=== PATIENT | male | born 1945 | race Caucasian/White ===

== ENCOUNTER 2017-10-20 22:07 | Emergency (ER) | payer MEDICARE, BC ==
[2017-10-20] MEDS ORDERED: Morphine 4 MG/ML Syringe IVPUSH PRN (22:19)
[2017-10-20] MEDS ORDERED: Aspirin 81 MG Tab.Chew PO ONE (22:19)
[2017-10-20] MEDS ORDERED: Nitroglycerin 0.4 MG Tab.SL SL PRN (22:19)
[2017-10-20] MEDS ORDERED: Sodium Chloride 0.9% 10 ML Syringe FLUSH PRN (22:19)
--- NOTE | 2017-10-20 22:23 | EDM.PDOC ---
ED HPI GENERAL MEDICAL PROBLEM - General Stated Complaint: CHEST PAINS Time Seen by Provider: 10/20/17 22:18 Source of Information: Reports: Patient, RN Notes Reviewed History Limitations: Reports: No Limitations - History of Present Illness INITIAL COMMENTS - FREE TEXT/NARRATIVE: 71-year-old gentleman presents to the emergency department today with complaint of chest pain, he has a known history of coronary artery disease was stented approximately 4 years ago, states had sudden onset of pain which is constant approximately 3 hours prior he does feel short of breath no nausea vomiting pain does go up the left side of his neck. Chest Pain Score (Numeric/FACES): 3 Left Neck Pain Score (Numeric/FACES): 10 - Related Data Allergies Allergy/AdvReac Type Severity Reaction Status Date / Time No Known Allergies Allergy Verified 10/20/17 22:33 Home Meds: Home Meds Gabapentin [Neurontin] 300 mg PO DAILY 10/20/17 [History] Gabapentin [Neurontin] 500 mg PO BEDTIME 10/20/17 [History] Hydrocodone/Acetaminophen [Hydrocodon-Acetaminophen 5-325] 1 tab PO DAILY PRN [History] Insulin NPH/Insulin Reg,Human [Novolin 70-30] 20 units SQ BEDTIME 10/20/17 [ History] Insulin NPH/Insulin Reg,Human [Novolin 70-30] 36 units SQ DAILY 10/20/17 [ History] Levothyroxine [Synthroid] 88 mcg PO DAILY 10/20/17 [History] Levothyroxine [Synthroid] 100 mcg PO DAILY 10/20/17 [History] Lisinopril 10 mg PO DAILY 10/20/17 [History] Methotrexate 25 mg PO ASDIRECTED 10/20/17 [History] predniSONE [Prednisone] 5 mg PO DAILY 10/20/17 [History] Past Medical History Cardiovascular History: Reports: CAD, High Cholesterol, Hypertension, Stents Social & Family History - Tobacco Use Smoking Status *Q: Former Smoker ED ROS GENERAL - Review of Systems Review Of Systems: See Below Constitutional: Denies: Diaphoresis HEENT: Reports: No Symptoms Respiratory: Reports: Shortness of Breath Cardiovascular: Reports: Chest Pain GI/Abdominal: Reports: No Symptoms : Reports: No Symptoms Musculoskeletal: Reports: No Symptoms Skin: Reports: Rash Neurological: Reports: No Symptoms ED EXAM, GENERAL - Physical Exam Exam: See Below Exam Limited By: No Limitations General Appearance: Alert, Moderate Distress Eye Exam: Bilateral Eye: Normal Inspection Ears: Normal External Exam, Normal Canal, Hearing Grossly Normal, Normal TMs Nose: Normal Inspection, Normal Mucosa, No Blood Throat/Mouth: Normal Inspection, Normal Lips, Normal Teeth, Normal Gums, Normal Oropharynx, Normal Voice, No Airway Compromise Head: Atraumatic, Normocephalic Neck: Normal Inspection, Supple, Non-Tender, Full Range of Motion Respiratory/Chest: No Respiratory Distress, Lungs Clear, Normal Breath Sounds, No Accessory Muscle Use, Other (Rash on the chest left side consistent with herpes zoster) Cardiovascular: Regular Rate, Rhythm, No Murmur GI/Abdominal: Soft, Non-Tender Extremities: No Pedal Edema, Other (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 DIRECTED Care 10/20/17 22:20 Active Chest 1V Frontal [CR] Stat Exams 10/20/17 22:20 Taken Heparin Sodium/D5W [Heparin 25,000 Units in D5W 500 ML] Med 10/20/17 23:15 Active 25,000 units in 500 ml IV TITRATE Morphine Med 10/20/17 22:19 Active 4 mg IVPUSH Q10M PRN Nitroglycerin [Nitrostat] Med 10/20/17 22:19 Active 0.4 mg SL Q5M PRN Nitroglycerin/D5W [Nitroglycerin 25 MG/D5W 250 ML] Med 10/20/17 23:30 Active 25 mg in 250 ml IV TITRATE Sodium Chloride 0.9% [Saline Flush] Med 10/20/17 22:19 Active 10 ml FLUSH ASDIRECTED PRN Peripheral IV Insertion Adult [OM.PC] Stat Oth 08/24/18 22:19 Ordered Saline Lock Insert [OM.PC] Stat Oth 10/20/17 22:19 Ordered EKG 12 Lead [EK] Stat Ther 10/20/17 22:19 Ordered Medication Orders Heparin Sodium/Dextrose (Heparin 25,000 Units In D5w 500 Ml) 25,000 units in 500 mls @ 20.684 mls/hr IV TITRATE ELENO; Protocol Last Admin: 10/20/17 23:25 Dose: 12 units/kg/hr, 20.684 mls/hr Nitroglycerin/Dextrose (Nitroglycerin 25 Mg/D5w 250 Ml) 25 mg in 250 mls @ 6 mls/hr IV TITRATE ELENO; Protocol Morphine Sulfate (Morphine) 4 mg IVPUSH Q10M PRN PRN Reason: Chest Pain Stop: 10/21/17 22:19 Last Admin: 10/20/17 22:49 Dose: 4 mg Nitroglycerin (Nitrostat) 0.4 mg SL Q5M PRN PRN Reason: Chest Pain Stop: 10/21/17 22:19 Last Admin: 10/20/17 22:29 Dose: 0.4 mg Sodium Chloride (Saline Flush) 10 ml FLUSH ASDIRECTED PRN PRN Reason: Keep Vein Open Last Admin: 10/20/17 22:29 Dose: 10 ml Labs: Laboratory Tests 10/20/17 10/20/17 10/20/17 Range/Units 22:30 22:30 22:30 WBC 8.9 (4.5-11.0) K/uL RBC 4.47 (4.30-5.90) M/uL Hgb 14.3 (12.0-15.0) g/dL Hct 41.0 (40.0-54.0) % MCV 92 (80-98) fL MCH 32 H (27-31) pg MCHC 35 (32-36) % Plt Count 159 (150-400) K/uL Neut % (Auto) 70 H (36-66) % Lymph % (Auto) 19 L (24-44) % [place] % (Auto) 8 H (2-6) % Eos % (Auto) 3 (2-4) % Baso % (Auto) 0 (0-1) % PT 9.9 (9.5-12.0) sec INR 0.89 (0.80-1.20) Sodium 140 (140-148) mmol/L Potassium 4.0 (3.6-5.2) mmol/L Chloride 104 (100-108) mmol/L Carbon Dioxide 28 (21-32) mmol/L Anion Gap 7.8 (5.0-14.0) mmol/L BUN 22 H (7-18) mg/dL Creatinine 1.2 (0.8-1.3) mg/dL Est Cr Clr Drug Dosing 66.83 mL/min Estimated GFR (MDRD) 59 L (>60) Glucose 221 H (74-106) mg/dL Calcium 8.8 (8.5-10.1) mg/dL Total Bilirubin 0.6 (0.2-1.0) mg/dL AST 31 (15-37) U/L ALT 31 (12-78) U/L Alkaline Phosphatase 125 H (46-116) U/L CK-MB (CK-2) 4.4 H (0-3.6) mg/mL Troponin I 1.862 H* (0.000-0.056) ng/mL Total Protein 6.9 (6.4-8.2) g/dL Albumin 3.2 L (3.4-5.0) g/dL Globulin 3.7 H (2.3-3.5) g/dL Albumin/Globulin Ratio 0.9 L (1.2-2.2) Meds: Medications Generic Name Dose Route Start Last Admin Trade Name Freq PRN Reason Stop Dose Admin Heparin Sodium/Dextrose 25,000 units in 500 mls @ 20.684 mls/hr 10/20/17 23: 15 10/20/17 23:25 Heparin 25,000 Units In D5w 500 Ml IV 12 units/kg/hr TITRATE ELENO 20.684 mls/hr Administration Protocol 12 UNITS/KG/HR Nitroglycerin/Dextrose 25 mg in 250 mls @ 6 mls/hr 10/20/17 23:30 Nitroglycerin 25 Mg/D5w 250 Ml IV TITRATE ELENO Protocol 10 MCG/MIN Morphine Sulfate 4 mg 10/20/17 22:19 10/20/17 22:49 Morphine IVPUSH 10/21/17 22:19 4 mg Q10M PRN Administration Chest Pain Nitroglycerin 0.4 mg 10/20/17 22:19 10/20/17 22:29 Nitrostat SL 10/21/17 22:19 0.4 mg Q5M PRN Administration Chest Pain Sodium Chloride 10 ml 10/20/17 22:19 10/20/17 22:29 Saline Flush FLUSH 10 ml ASDIRECTED PRN Administration Keep Vein Open Discontinued Medications Generic Name Dose Route Start Last Admin Trade Name Freq PRN Reason Stop Dose Admin Aspirin 324 mg 10/20/17 22:19 10/20/17 22:28 Aspirin PO 10/20/17 22:20 324 mg ONETIME ONE Administration Clopidogrel Bisulfate 300 mg 10/20/17 23:10 10/20/17 23:18 Plavix PO 10/20/17 23:11 300 mg ONETIME ONE Administration Heparin Sodium (Porcine) 0 units 10/20/17 23:10 10/20/17 23:21 Heparin Sodium IVPUSH 10/20/17 23:11 4,000 units .BOLUS ONE Administration Hydromorphone HCl 1 mg 10/20/17 23:05 10/20/17 23:10 Dilaudid IVPUSH 10/20/17 23:06 1 mg ONETIME ONE Administration Departure - Departure Time of Disposition: 23:29 Disposition: DC/Tfer to Acute Hospital 02 Reason for Transfer *Q: Primary PCI Indicated Condition: Fair Clinical Impression: Non-STEMI (non-ST elevated myocardial infarction) Referrals: PCP,None [Primary Care Provider] - - My Orders Last 24 Hours: My Active Orders 10/20/17 22:19 Cardiac Monitoring [RC] .As Directed Morphine 4 mg IVPUSH Q10M PRN Nitroglycerin [Nitrostat] 0.4 mg SL Q5M PRN Sodium Chloride 0.9% [Saline Flush] 10 ml FLUSH ASDIRECTED PRN Peripheral IV Insertion Adult [OM.PC] Stat Saline Lock Insert [OM.PC] Stat EKG 12 Lead [EK] Stat 10/20/17 22:20 EKG Documentation Completion [RC] ASDIRECTED Peripheral IV Care [RC] . DIRECTED Chest 1V Frontal [CR] Stat 10/20/17 23:15 Heparin Sodium/D5W [Heparin 25,000 Units in D5W 500 ML] 25,000 units in 500 ml IV TITRATE 10/20/17 23:30 Nitroglycerin/D5W [Nitroglycerin 25 MG/D5W 250 ML] 25 mg in 250 ml IV TITRATE - Assessment/Plan Last 24 Hours: My Active Orders 10/20/17 22:19 Cardiac Monitoring [RC] .As Directed Morphine 4 mg IVPUSH Q10M PRN Nitroglycerin [Nitrostat] 0.4 mg SL Q5M PRN Sodium Chloride 0.9% [Saline Flush] 10 ml FLUSH ASDIRECTED PRN Peripheral IV Insertion Adult [OM.PC] Stat Saline Lock Insert [OM.PC] Stat EKG 12 Lead [EK] Stat 10/20/17 22:20 EKG Documentation Completion [RC] ASDIRECTED Peripheral IV Care [RC] . DIRECTED Chest 1V Frontal [CR] Stat 10/20/17 23:15 Heparin Sodium/D5W [Heparin 25,000 Units in D5W 500 ML] 25,000 units in 500 ml IV TITRATE 10/20/17 23:30 Nitroglycerin/D5W [Nitroglycerin 25 MG/D5W 250 ML] 25 mg in 250 ml IV TITRATE Plan: Assessment Acuity = acute Site and laterality = non-ST elevation myocardial infarction complicated patient with known history coronary artery disease, diabetes mellitus type 2 insulin-dependent Etiology = probable underlying coronary artery disease Manifestations = pain Location of injury = Home Lab values = CBC unremarkable INR 0.89 CK-MB mildly elevated 4.4 troponin elevated at 1.862 albumin low at 2.2 consistent hypoalbuminemia EKG demonstrates sinus rhythm left axis deviation with Q waves in [address] elevations or depressions, , chest x-ray I did review films myself I cannot appreciate any acute process, the official read from radiology is pending Plan Called discussed case with hospitalist lead injection mold technician Dr. Ward at [facility] kindly accepted the patient in transport will be transported via EMS ground thus far has received a total of 2 mg morphine, nitroglycerin sublingual 1, aspirin, nitro drip initiated, heparin drip initiated after 4000 unit bolus and 1 mg Dilaudid This note was dictated using [employer] voice recognition software please call with any questions on syntax or grammar.
[2017-10-20] MEDS ORDERED: HYDROmorphone 1 MG/ML Syringe IVPUSH ONE (23:05)
[2017-10-20] MEDS ORDERED: Clopidogrel 75 MG Tab PO ONE (23:10)
[2017-10-20] MEDS ORDERED: Heparin Sodium 5,000 Units/ML Vial IVPUSH ONE (23:10)
[2017-10-20] MEDS ORDERED: Heparin Sodium/D5W 25,000 UNITS/500 ML BAG IV SCH (23:15)
[2017-10-20] MEDS ORDERED: Nitroglycerin/D5W 25 MG/250 ML BOTTLE IV SCH (23:30)
--- NOTE | 2017-10-23 08:41 | CR ---
CHEST: Vertebral CLINICAL HISTORY:Chest pain COMPARISON:None FINDINGS: There is mild pulmonary vascular cephalization. There is some generalized interstitial pro minence. There are some streaky densities in both lung bases some of which may be scarring and/or ate lectasis. There are atherosclerotic changes in the aorta.. IMPRESSION: Pulmonary vascular cephalization and interstitial prominence. Though some of this may be chronic changes of CHF are suggested. If clinically relevant, short-term follow-up 2 view chest glenis mmended
== END 2017-10-20 23:54 ==
LOC: JP.ED 22:07
DX: I21.4 Non-ST elevation (NSTEMI) myocardial infarction (principal); I25.10 Atherosclerotic heart disease of native coronary artery without angina pectoris; E11.9 Type 2 diabetes mellitus without complications; Z87.891 Personal history of nicotine dependence
CPT/HCPCS: 36415; 71045; 80053; 82553; 84484; 85025; 85610; 93005; 96374; 96375; 99285; A9270; J1170; J1644; J2270; J3490; J7050